=== PATIENT | female | born 1980 | race Caucasian/White ===

== ENCOUNTER 2017-09-09 15:05 | Emergency (ER) | payer OTHER ==
[~2017-09-09] VITALS: Ht 167.6 cm; Wt 93.0 kg
[2017-09-09 15:09] VITALS: BP 148/80
== END 2017-09-09 17:21 | disposition home or self-care (01) ==
LOC: ED 15:05
DX: L73.9 Follicular disorder, unspecified (principal); M06.9 Rheumatoid arthritis, unspecified; M79.7 Fibromyalgia

== ENCOUNTER 2017-10-14 19:36 | Emergency (ER) | payer OTHER ==
[~2017-10-14] VITALS: Ht 167.6 cm; Wt 97.1 kg
[2017-10-14 20:37] VITALS: Ht 167.6 cm; Wt 97.1 kg
[2017-10-14 22:37] VITALS: BP 130/80
== END 2017-10-14 22:37 | disposition home or self-care (01) ==
LOC: ED 19:36
DX: J06.9 Acute upper respiratory infection, unspecified (principal); J02.9 Acute pharyngitis, unspecified; J44.9 Chronic obstructive pulmonary disease, unspecified; J45.909 Unspecified asthma, uncomplicated; M79.7 Fibromyalgia; Z88.2 Allergy status to sulfonamides

== ENCOUNTER 2018-03-17 16:05 | Emergency (ER) | payer OTHER ==
[~2018-03-17] VITALS: Ht 162.6 cm; Wt 99.3 kg
[2018-03-17 16:33] VITALS: Ht 162.6 cm; Wt 99.3 kg
[2018-03-17 17:50] VITALS: BP 142/74
== END 2018-03-17 17:50 | disposition home or self-care (01) ==
LOC: ED 16:05
DX: J06.9 Acute upper respiratory infection, unspecified (principal); H66.92 Otitis media, unspecified, left ear; J44.9 Chronic obstructive pulmonary disease, unspecified; Z88.2 Allergy status to sulfonamides

== ENCOUNTER 2018-09-21 00:24 | Emergency (ER) | payer OTHER ==
[~2018-09-21] VITALS: Ht 167.6 cm; Wt 98.4 kg
[2018-09-21 00:29] VITALS: Ht 167.6 cm; Wt 98.4 kg
[2018-09-21 02:31] VITALS: BP 120/71
== END 2018-09-21 02:31 | disposition home or self-care (01) ==
LOC: ED 00:24
DX: S93.602A Unspecified sprain of left foot, initial encounter (principal); J44.9 Chronic obstructive pulmonary disease, unspecified; F41.9 Anxiety disorder, unspecified; M35.00 Sjogren syndrome, unspecified; M79.7 Fibromyalgia; Z88.2 Allergy status to sulfonamides; X58.XXXA Exposure to other specified factors, initial encounter; Y93.89 Activity, other specified; Y92.89 Other specified places as the place of occurrence of the external cause; Y99.8 Other external cause status
CPT/HCPCS: J1885